=== PATIENT | female | born 1940 | race Asian ===

== ENCOUNTER 2018-03-27 17:26 | Emergency (ER) | payer OTHER ==
[~2018-03-27] VITALS: Ht 162.6 cm; Wt 70.0 kg
[2018-03-27] MEDS ORDERED: TRAM-355 PO (17:34)
[2018-03-27] MEDS ORDERED: AMLO5TAB66 PO (17:34)
[2018-03-27] MEDS ORDERED: ASPI-1188 PO (17:34)
[2018-03-27] MEDS ORDERED: ATOR20TA65 PO (17:34)
[2018-03-27] MEDS ORDERED: LOSA100T20 PO (17:34)
[2018-03-27] MEDS ORDERED: ISOS5TAB5 PO (17:34)
[2018-03-27] MEDS ORDERED: ALEN70TA69 PO (17:34)
[2018-03-27] MEDS ORDERED: METF-444 PO (17:34)
[2018-03-27 17:38] LABS: GLUCOSE,POINT OF CARE 139 MG/DL (70-110)
[2018-03-27] MEDS ORDERED: ACETAMINOPHEN 325 MG TABLET PO ONE (18:15)
[2018-03-27 19:55] VITALS: BP 136/77
== END 2018-03-27 19:55 | disposition home or self-care (01) ==
LOC: EMS 17:27
DX: S20.212A Contusion of left front wall of thorax, initial encounter (principal); E11.9 Type 2 diabetes mellitus without complications; E78.00 Pure hypercholesterolemia, unspecified; I10 Essential (primary) hypertension; Z79.84 Long term (current) use of oral hypoglycemic drugs; Z79.891 Long term (current) use of opiate analgesic; Z79.82 Long term (current) use of aspirin; Z79.899 Other long term (current) drug therapy; W19.XXXA Unspecified fall, initial encounter; Y93.89 Activity, other specified; Y92.89 Other specified places as the place of occurrence of the external cause; Y99.8 Other external cause status

== ENCOUNTER 2024-01-06 12:04 | Emergency (ER) | payer OTHER ==
[~2024-01-06] VITALS: Ht 160 cm; Wt 64.1 kg
[~2024-01-06 12:04] MED LIST: ALEN70TA80 PO; AMLO5TAB66 PO; ASPI-1522 PO; ATOR20TA65 PO; ISOS5TAB5 PO; LOSA100T59 PO; METF-444 PO; [UNRECOGNIZED DRUG - CODE] PO
[2024-01-06 12:19] VITALS: BP 143/70; PULSE 103; RESP 14; TEMP 98
[2024-01-06 13:01] LABS: BASOPHILS % (AUTO) 0.5 % (0.0-2.0); EOSINOPHILS % (AUTO) 0.9 % (1.0-6.0); HEMATOCRIT 35.3 % (36-46); HEMOGLOBIN 11.5 g/dL (12.0-16.0); LYMPHOCYTES # (AUTO) 3.6 K/uL (1.0-4.8); LYMPHOCYTES % (AUTO) 33.4 % (22.0-44.0); MEAN CORPUSCULAR HEMOGLOBIN 30.1 pg (26.0-34.0); MEAN CORPUSCULAR HGB CONC 32.7 G/dL (31.0-37.0); MEAN CORPUSCULAR VOLUME 92 fL (80-100); MONOCYTES # (AUTO) 0.6 K/uL (0.1-1.0); NEUTROPHILS # (AUTO) 6.4 K/uL (1.8-7.7); NEUTROPHILS % (AUTO) 59.2 % (40.0-70.0); PLATELET COUNT (AUTO) 268 K/uL (150-450); RED BLOOD CELL COUNT(AUTO) 3.83 MIL/uL (4.00-5.20); RED CELL DISTRIBUTION WIDTH 13.6 % (11.5-14.5); WHITE BLOOD COUNT (AUTO) 10.8 K/uL (4.5-11.0)
[2024-01-06 13:19] LABS: CALCIUM, TOTAL 9.1 mg/dL (8.8-10.5); CREATININE 1.13 mg/dL (0.60-1.30); POTASSIUM 3.4 mmol/L (3.5-5.1)
[2024-01-06 13:28] LABS: TROPONIN I-HIGH SENSITIVITY 6 ng/L (<51)
== END 2024-01-06 14:54 | disposition home or self-care (01) ==
LOC: EMS 12:04
DX: R07.89 Other chest pain (principal); E11.9 Type 2 diabetes mellitus without complications; E78.00 Pure hypercholesterolemia, unspecified; I10 Essential (primary) hypertension
CPT/HCPCS: 71045; 80048; 82962; 84484; 85025; 93005; 99285; 36415-L1; 36415-TC